=== PATIENT | female | born 1980 | race African-American/Black ===

== ENCOUNTER 2022-01-27 19:19 | Emergency (ER) | payer SELFPAY ==
--- NOTE | 2022-01-27 20:48 | EDPHYS ---
Physician Documentation [facility] Name: Layne Perez Age: 41 yrs Sex: Female : 1980 Arrival Date: 01/27/2022 Time: 19:30 Bed 19 Private MD: ED Physician Praveen Lowe HPI: 01/27 23:47 This 41 yrs old Black Female presents to ER via Ambulatory with complaints of Cyst, kb Vaginal Pain. 23:47 The patient presents with lump to left labia . Onset: The symptoms/episode kb began/occurred years ago. Modifying factors: The symptoms are alleviated by nothing, the symptoms are aggravated by nothing. Associated signs and symptoms: The patient has no apparent associated signs or symptoms. Severity of symptoms: At their worst the symptoms were mild, moderate, in the emergency department the symptoms are unchanged. The patient has not experienced similar symptoms in the past. The patient has not recently seen a physician. Pt reports lump to vaginal area that started years ago. States she just wanted to get it looked at so she came in today. Also reports she is homeless and someone paid for a hotel room for her, but its in [place] so she came to get a taxi voucher to [place]. 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 - Social history:: Smoking status: Patient/guardian denies using tobacco products. ROS: 23:46 Constitutional: Negative for fever, chills, and weight loss. kb 23:46 : Positive for bartholin cyst. 23:46 All other systems are negative. Exam: 23:46 Constitutional: This is a well developed, well nourished patient who is awake, alert, kb and in no acute distress. Head/Face: Normocephalic, atraumatic. ENT: Moist Mucous membranes Respiratory: Respirations even and unlabored. No increased work of breathing. Talking in full sentences Skin: Warm, dry with normal turgor. Normal color. MS/ Extremity: Pulses equal, no cyanosis. Neurovascular intact. Full, normal range of motion. Neuro: Awake and alert, GCS 15, oriented to person, place, time, and situation. Moves all extremities. Normal gait. Psych: Awake, alert, with orientation to person, place and time. Behavior, mood, and affect are within normal limits. 23:46 : Pelvic Exam: External exam: Bartholin's cyst present, no erythema, not excoriated, no evidence of foreign body, no lesions, no ulcerations, no warts seen. Vital Signs: 19:37 BP 120 / 71; Pulse 79; Resp 18; Temp 98.9(TE); Pulse Ox 100% ; Weight 104.33 kg (M); bm7 Height 5 ft. 9 in. (175.26 cm); Pain 3/10; 19:37 Body Mass Index 33.96 (104.33 kg, 175.26 cm) bm7 MDM: 20:41 Patient medically screened. kb 23:38 Data reviewed: vital signs, nurses notes. Data interpreted: Pulse oximetry: on room air kb is 100 %. Interpretation: normal. Counseling: I had a detailed discussion with the patient and/or guardian regarding: the historical points, exam findings, and any diagnostic results supporting the discharge/admit diagnosis, the need for outpatient follow up, an OB/Gyne specialist, to return to the emergency department if symptoms worsen or persist or if there are any questions or concerns that arise at home. 23:55 ED course: No signs of abscess. No pain or tenderness. Educated to follow up with SCIENTOLOGIST. kb Administered Medications: No medications were administered Disposition: 23:39 Co-signature as Attending Physician, Praveen Lowe MD I agree with the assessment and kdr plan of care. Disposition Summary: 01/27/22 20:47 Discharge Ordered Location: Home kb Condition: Stable kb Diagnosis - Cyst of Bartholin's gland kb Followup: kb - With: Emergency Department - When: As needed - Reason: Worsening of condition Followup: kb - With: Private Physician - When: 2 - 3 days - Reason: Recheck today's complaints, Continuance of care, Re-evaluation by your physician Discharge Instructions: - Discharge Summary Sheet kb - Bartholin's Cyst, [id number] kb Forms: - Medication Reconciliation Form kb - Thank You Letter kb - Antibiotic Education kb - Prescription Opioid Use kb Signatures: Umu Ware, CURRICULUM ASSISTANT PRINCIPAL-C CURRICULUM ASSISTANT PRINCIPAL-Ckb Praveen Lowe MD MD kdr McCarthy, Brittany RN RN bm7
--- NOTE | 2022-01-27 20:48 | ER ---
Nurse's Notes [facility] Name: Layne Perez Age: 41 yrs Sex: Female : 1980 Arrival Date: 01/27/2022 Time: 19:30 Bed 19 Private MD: Diagnosis: Cyst of Bartholin's gland Presentation: 01/27 19:38 Chief complaint: Patient states: I have a bump down there for a while and it keeps bm7 growing. A friend of mine who is a nurse looked at it and says she thinks its a cyst. You can see the growth through my bathing suit and I feel like people think I look like a man. I am also homeless and I am going to need an emergent taxi home. Coronavirus screen: At this time, the client does not indicate any symptoms associated with coronavirus-19. Ebola Screen: No symptoms or risks identified at this time. Initial Sepsis Screen: Does the patient meet any 2 criteria? No. Patient's initial sepsis screen is negative. Does the patient have a suspected source of infection? Yes: Skin breakdown/wound. Risk Assessment: Do you want to hurt yourself or someone else? Patient reports no desire to harm self or others. Onset of symptoms is unknown. 19:38 Method Of Arrival: Ambulatory 7 19:38 Acuity: DOMINGO 4 bm7 Triage Assessment: 19:40 General: Appears in no apparent distress. comfortable, Behavior is calm, cooperative, bm7 appropriate for age. Pain: Complains of pain in groin Pain does not radiate. EENT: No deficits noted. No signs and/or symptoms were reported regarding the EENT system. Neuro: No deficits noted. Cardiovascular: No deficits noted. Respiratory: No deficits noted. GI: No deficits noted. No signs and/or symptoms were reported involving the gastrointestinal system. : Reports pain on labia. Derm: No deficits noted. No signs and/or symptoms reported regarding the dermatologic system. Musculoskeletal: No deficits noted. No signs and/or symptoms reported regarding the musculoskeletal system. 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 - Social history:: Smoking status: Patient/guardian denies using tobacco products. Screenin:52 Abuse screen: Denies threats or abuse. Nutritional screening: No deficits noted. ll3 Tuberculosis screening: No symptoms or risk factors identified. Fall Risk None identified. Vital Signs: 19:37 BP 120 / 71; Pulse 79; Resp 18; Temp 98.9(TE); Pulse Ox 100% ; Weight 104.33 kg (M); bm7 Height 5 ft. 9 in. (175.26 cm); Pain 3/10; 19:37 Body Mass Index 33.96 (104.33 kg, 175.26 cm) bm7 ED Course: 19:30 Patient arrived in ED. am2 19:37 Umu Ware FNP-C is [facility]. kb 19:37 Praveen Lowe MD is Attending Physician. kb 19:40 Triage completed. bm7 19:40 Arm band placed on right wrist. bm7 20:52 Patient has correct armband on for positive identification. Bed in low position. Call ll3 light in reach. Side rails up X 1. 20:52 No provider procedures requiring assistance completed. Patient did not have IV access ll3 during this emergency room visit. Administered Medications: No medications were administered Medication: 20:52 VIS not applicable for this client. ll3 Outcome: 20:47 Discharge ordered by . kb 20:52 Discharged to home ambulatory. ll3 20:52 Condition: stable 20:52 Discharge instructions given to patient, Instructed on discharge instructions, follow up and referral plans. Demonstrated understanding of instructions, follow-up care. 20:53 Patient left the ED. ll3 Signatures: Umu Ware FNP-C FNP-Ckb Moreno, Amanda am2 Rosina Reyes RN RN 7 Val Vallecillo RN RN ll3
[2022-01-27 22:47] VITALS: BP 120/71; TEMP 98.9; O2SAT 100
== END 2022-01-27 20:53 | disposition home or self-care (01) ==
LOC: ER 19:19
DX: N75.0 Cyst of Bartholin's gland (principal)
CPT/HCPCS: 99281